=== PATIENT | female | born 1995 | race African-American/Black ===

== ENCOUNTER 2016-11-06 22:32 | Emergency (ER) | payer MEDICAID ==
[~2016-11-06] VITALS: Ht 160 cm; Wt 69.9 kg
[2016-11-06 22:38] VITALS: BP 118/70
[2016-11-06 23:04] LABS: Urine Blood TRACE /uL (Negative); Urine Color Yellow (Yellow); Urine Glucose Normal (Normal); Urine Ketone Negative (Negative); Urine Mucus MANY (None Seen); Urine Nitrite Negative (Negative); Urine RBC 24 /hpf (0 - 4); Urine Squamous Epithelial Cell MOD /hpf (<5); Urine pH 7.5 (5.0-8.0)
[2016-11-06 23:13] LABS: Urine Bilirubin Negative (Negative)
[2016-11-06 23:25] LABS: Basophils # (auto) 0.1 uL; Basophils % (auto) 0.8 % (0.0-2.0); CONDITION Y; Eosinophils # (auto) 0.1 uL; Hematocrit 38.2 % (36.0-46.0); Hemoglobin 12.6 g/dL (12.2-16.2); Lymphocytes # (auto) 2.1 uL; Lymphocytes % (auto) 29.4 % (10.0-50.0); Mean Corpuscular Hemoglobin 28.9 pg (28.0-32.0); Mean Corpuscular Hgb Conc. 32.9 g/dL (32.0-36.0); Mean Corpuscular Volume 87.8 fL (80.0-100.0); Mean Platelet Volume 10.1 fL (7.4-10.4); Monocytes # (auto) 0.5 uL; Monocytes % (auto) 7.7 % (0.0-12.0); Neutrophils # (auto) 4.2 uL; Neutrophils % (auto) 60.1 % (37.0-80.0); Platelet Count (auto) 217 10^3/uL (140-450); Red Cell Distribution Width 13.2 % (11.6-16.0)
[2016-11-06 23:27] LABS: Albumin 3.6 g/dL (3.4-5.0); BUN/Creatinine Ratio 10.3; Calcium 8.3 mg/dL (8.5-10.1); Potassium 3.4 mmol/L (3.5-5.1)
[2016-11-06 23:29] LABS: Bilirubin, Total 0.4 mg/dL (0.2-1.0); Total Protein 7.3 g/dL (6.4-8.2)
== END 2016-11-07 01:15 | disposition left against medical advice (07) ==
LOC: ER 22:32
DX: O26.891 Other specified pregnancy related conditions, first trimester (principal); R10.30 Lower abdominal pain, unspecified; Z3A.01 Less than 8 weeks gestation of pregnancy; Z53.21 Procedure and treatment not carried out due to patient leaving prior to being seen by health care provider
CPT/HCPCS: 36415; 80053; 81001; 84702; 85025

== ENCOUNTER 2018-07-28 09:11 | Emergency (ER) | payer MEDICAID ==
[~2018-07-28] VITALS: Ht 160 cm; Wt 81.2 kg
[2018-07-28 09:44] VITALS: BP 126/60
== END 2018-07-28 10:32 | disposition home or self-care (01) ==
LOC: ER 09:11
DX: Z32.01 Encounter for pregnancy test, result positive (principal); R10.30 Lower abdominal pain, unspecified
CPT/HCPCS: 36415; 81002; 84702

== ENCOUNTER 2019-01-25 15:03 | Observation (INO) | payer MEDICAID ==
[~2019-01-25] VITALS: Ht 160 cm; Wt 71.2 kg
[2019-01-25 15:05] VITALS: BP 111/55
== END 2019-01-25 17:40 | disposition home or self-care (01) | DRG 566 ==
LOC: ER 15:03 → LDRP 15:10
PROVIDERS: ADMIT Specialist; ATTEND Specialist
DX: O46.93 Antepartum hemorrhage, unspecified, third trimester (principal); N93.9 Abnormal uterine and vaginal bleeding, unspecified; Z3A.30 30 weeks gestation of pregnancy
CPT/HCPCS: 59025; 76815; 81002; 84112; 99284; G0378

== ENCOUNTER 2019-03-19 19:43 | Observation (INO) | payer MEDICAID | END 2019-03-19 20:41 | disposition home or self-care (01) | DRG 566 | LOC: LDRP 19:43 | PROVIDERS: ADMIT Specialist; ATTEND Specialist | DX: O26.893 Other specified pregnancy related conditions, third trimester (principal); R42 Dizziness and giddiness; O26.93 Pregnancy related conditions, unspecified, third trimester; Z3A.38 38 weeks gestation of pregnancy | CPT/HCPCS: 59025; 81002; G0378 ==

== ENCOUNTER 2019-03-25 18:38 | Observation (INO) | payer MEDICAID ==
[~2019-03-25] VITALS: Ht 160 cm; Wt 85.7 kg
[~2019-03-25 18:38] MED LIST: PREN-96 PO
== END 2019-03-25 22:49 | disposition home or self-care (01) | DRG 566 ==
LOC: LDRP 18:38
PROVIDERS: ADMIT Specialist; ATTEND Specialist
DX: O62.9 Abnormality of forces of labor, unspecified (principal); Z3A.38 38 weeks gestation of pregnancy
CPT/HCPCS: 59025; 76818; 81002; G0378

== ENCOUNTER 2019-03-28 21:11 | Observation (INO) | payer MEDICAID | END 2019-03-28 22:20 | disposition home or self-care (01) | DRG 566 | LOC: LDRP 21:11 | PROVIDERS: ADMIT Specialist; ATTEND Specialist | DX: O62.9 Abnormality of forces of labor, unspecified (principal); O99.89 Other specified diseases and conditions complicating pregnancy, childbirth and the puerperium; Z3A.39 39 weeks gestation of pregnancy | CPT/HCPCS: 59025; 81002; G0378 ==

== ENCOUNTER 2019-03-30 10:30 | Observation (INO) | payer MEDICAID ==
[2019-03-30 14:26] LABS: Basophils # (auto) 0 uL; Eosinophils # (auto) 0 uL; Eosinophils % (auto) 0.3 % (0.0-7.0); Monocytes # (auto) 0.4 uL; Nucleated Red Blood Cells % 0.1 %; Red Blood Cells 3.62 10^6/uL (4.0-5.20)
[2019-03-30 14:27] LABS: Basophils % (auto) 0.4 % (0.0-2.0); Hematocrit 27.9 % (36.0-46.0); Lymphocytes # (auto) 1.3 uL; Lymphocytes % (auto) 16.5 % (10.0-50.0); Mean Corpuscular Hgb Conc. 32.4 g/dL (32.0-36.0); Mean Corpuscular Volume 77.2 fL (80.0-100.0); Monocytes % (auto) 4.8 % (0.0-12.0); Neutrophils # (auto) 6.2 uL; Platelet Count (auto) 233 10^3/uL (140-450); Red Cell Distribution Width 16.4 % (11.8-14.3)
[2019-03-30 15:25] LABS: Urine Bacteria FEW /hpf (None Seen); Urine Blood Negative /uL (Negative); Urine Hyaline Cast FEW /lpf (0 - 2); Urine Mucus FEW (None Seen); Urine Specific Gravity 1.025 (1.001-1.035); Urine WBC 7 /hpf (0 - 5)
[2019-03-30 15:27] LABS: Amphetamine Screen, Urine NEGATIVE (NEGATIVE); Barbiturate Scree,Urine NEGATIVE (NEGATIVE); Benzodiazephine Screen, Urine NEGATIVE (NEGATIVE); Cannabinoid Screen, Urine NEGATIVE (NEGATIVE); Cocaine Screen, Urine NEGATIVE (NEGATIVE); Opiate Scree,Urine NEGATIVE (NEGATIVE); Phencyclidine Screen, Urine NEGATIVE (NEGATIVE)
[2019-03-31 05:06] LABS: RPR Non Reactive (Non Reactive)
== END 2019-03-30 14:45 | disposition home or self-care (01) | DRG 566 ==
LOC: LDRP 10:30
PROVIDERS: ADMIT Specialist; ATTEND Specialist
DX: O48.0 Post-term pregnancy (principal); Z3A.40 40 weeks gestation of pregnancy
CPT/HCPCS: 36415; 59025; 76818; 80307; 81001; 81002; 84112; 85025; 86592; 87086; 87491; 87591; G0378

== ENCOUNTER 2019-04-01 14:38 | Observation (INO) | payer MEDICAID | END 2019-04-01 15:40 | disposition home or self-care (01) | DRG 566 | LOC: LDRP 14:38 | PROVIDERS: ADMIT Obstetrics & Gynecology; ATTEND Obstetrics & Gynecology | DX: O48.0 Post-term pregnancy (principal); Z3A.40 40 weeks gestation of pregnancy | CPT/HCPCS: 59025; 76818; 81002; G0378 ==

== ENCOUNTER 2019-04-03 11:05 | Observation (INO) | payer MEDICAID | END 2019-04-03 13:05 | disposition home or self-care (01) | DRG 566 | LOC: LDRP 11:05 | PROVIDERS: ADMIT Obstetrics & Gynecology; ATTEND Obstetrics & Gynecology | DX: O48.0 Post-term pregnancy (principal); Z3A.40 40 weeks gestation of pregnancy | CPT/HCPCS: 59025; 76818; 81002; G0378 ==

== ENCOUNTER → 2021-05-13 | Outpatient (CLI) | payer MEDICAID ==
[2021-05-13 11:33] LABS: Basophils # (auto) 0 10 ^3/uL (0-0.2); Basophils % (auto) 0.4 % (0.0-2.0); Eosinophils # (auto) 0.1 10 ^3/uL (0-0.8); Hematocrit 31.7 % (36.0-46.0); Hemoglobin 11.1 g/dL (12.2-16.2); Lymphocytes # (auto) 0.9 10 ^3/uL (0.4-5.4); Lymphocytes % (auto) 13.1 % (10.0-50.0); Mean Corpuscular Hemoglobin 30.2 pg (28.0-32.0); Mean Corpuscular Volume 86.4 fL (80.0-100.0); Monocytes # (auto) 0.3 10 ^3/uL (0-1.3); Monocytes % (auto) 4.6 % (0.0-12.0); Neutrophils # (auto) 5.5 10 ^3/uL (1.6-8.6); Neutrophils % (auto) 79.9 % (37.0-80.0); Red Blood Cells 3.67 10^6/uL (4.0-5.20); Red Cell Distribution Width 14.2 % (11.8-14.3); White Blood Cell 6.9 10^3/uL (4.4-10.8)
[2021-05-13 11:45] LABS: Alcohol, Urine < 3.0 mg/dL (0-10); Amphetamine Screen, Urine NEGATIVE (NEGATIVE); Barbiturate Scree,Urine NEGATIVE (NEGATIVE); Benzodiazephine Screen, Urine NEGATIVE (NEGATIVE); Cannabinoid Screen, Urine NEGATIVE (NEGATIVE); Cocaine Screen, Urine NEGATIVE (NEGATIVE); Opiate Scree,Urine NEGATIVE (NEGATIVE); Phencyclidine Screen, Urine NEGATIVE (NEGATIVE)
[2021-05-14 05:07] LABS: RPR Non Reactive (Non Reactive)
== END | disposition home or self-care (01) ==
LOC: LAB 10:31
PROVIDERS: ATTEND Obstetrics & Gynecology Obstetrics
DX: Z34.80 Encounter for supervision of other normal pregnancy, unspecified trimester (principal); N39.0 Urinary tract infection, site not specified; Z31.430 Encounter of female for testing for genetic disease carrier status for procreative management; Z36.0 Encounter for antenatal screening for chromosomal anomalies
CPT/HCPCS: 36415; 80307; 83036; 84112; 84702; 85025; 86592; 86703; 86762; 86850; 86900; 86901; 87086; 87340

== ENCOUNTER → 2021-08-15 | Outpatient (CLI) | payer MEDICAID ==
[2021-08-15 09:29] LABS: Basophils # (auto) 0 10 ^3/uL (0-0.2); Basophils % (auto) 0.4 % (0.0-2.0); Eosinophils # (auto) 0.1 10 ^3/uL (0-0.8); Eosinophils % (auto) 1.2 % (0.0-7.0); Hematocrit 32.9 % (36.0-46.0); Hemoglobin 11.3 g/dL (12.2-16.2); Lymphocytes # (auto) 1.6 10 ^3/uL (0.4-5.4); Lymphocytes % (auto) 23.1 % (10.0-50.0); Mean Corpuscular Hemoglobin 29.3 pg (28.0-32.0); Mean Corpuscular Hgb Conc. 34.2 g/dL (32.0-36.0); Mean Corpuscular Volume 85.6 fL (80.0-100.0); Monocytes # (auto) 0.4 10 ^3/uL (0-1.3); Monocytes % (auto) 6.3 % (0.0-12.0); Neutrophils # (auto) 4.8 10 ^3/uL (1.6-8.6); Nucleated Red Blood Cells % 0.2 %; Red Blood Cells 3.85 10^6/uL (4.0-5.20); Red Cell Distribution Width 13.7 % (11.8-14.3)
== END | disposition home or self-care (01) ==
LOC: LAB 09:04
PROVIDERS: ATTEND Obstetrics & Gynecology Obstetrics
DX: Z34.80 Encounter for supervision of other normal pregnancy, unspecified trimester (principal); O99.810 Abnormal glucose complicating pregnancy
CPT/HCPCS: 36415; 82951; 85025

== ENCOUNTER 2021-10-02 08:04 | Inpatient (IN) | payer MEDICAID ==
[~2021-10-02] VITALS: Ht 160 cm; Wt 86.6 kg
[2021-10-02] MEDS ORDERED: ASPI-498 OR (08:39)
[2021-10-02] MEDS ORDERED: LIDOCAINE 2%HCL (LOCAL ANESTH.) INJ 10ml MDV IJ PRN (12:15)
[2021-10-02] MEDS ORDERED: PROMETHAZINE HCL 25 MG/ML 1ML IV PRN (12:15)
[2021-10-02] MEDS ORDERED: LACTATED RINGER'S 1,000 ML IV SCH (12:15)
[2021-10-02] MEDS ORDERED: BUTORPHANOL TARTRATE 2 MG/1 ML VIAL IV PRN ×2 (12:15)
[2021-10-02 12:38] LABS: Basophils # (auto) 0 10 ^3/uL (0-0.2); Basophils % (auto) 0.4 % (0.0-2.0); Eosinophils # (auto) 0 10 ^3/uL (0-0.8); Eosinophils % (auto) 0.2 % (0.0-7.0); Hematocrit 34.6 % (36.0-46.0); Hemoglobin 11.2 g/dL (12.2-16.2); Lymphocytes # (auto) 1.1 10 ^3/uL (0.4-5.4); Lymphocytes % (auto) 11.5 % (10.0-50.0); Mean Corpuscular Hemoglobin 27.1 pg (28.0-32.0); Mean Corpuscular Hgb Conc. 32.5 g/dL (32.0-36.0); Mean Corpuscular Volume 83.2 fL (80.0-100.0); Monocytes # (auto) 0.5 10 ^3/uL (0-1.3); Monocytes % (auto) 5.2 % (0.0-12.0); Neutrophils # (auto) 8.2 10 ^3/uL (1.6-8.6); Neutrophils % (auto) 82.7 % (37.0-80.0); Red Blood Cells 4.16 10^6/uL (4.0-5.20); Red Cell Distribution Width 14.1 % (11.8-14.3); White Blood Cell 9.9 10^3/uL (4.4-10.8)
[2021-10-02 12:55] LABS: INR 0.95 (0.9-1.15); Partial Thromboplastin Time 27.7 sec (24.6-33.4)
[2021-10-02 12:56] LABS: Albumin 2.7 g/dL (3.4-5.0); BUN/Creatinine Ratio 8.3; Calcium 8.3 mg/dL (8.5-10.1); Potassium 3.8 mmol/L (3.5-5.1)
[2021-10-02 12:59] LABS: Bilirubin, Total 0.4 mg/dL (0.2-1.0); Total Protein 6.6 g/dL (6.4-8.2)
[2021-10-02] MEDS ORDERED: PENICILLIN G POT 5MIL/D5 50ML 50 ML IV ONE (13:15)
[2021-10-02] MEDS ORDERED: NS/OXYTOCIN 20UNITS 500 ML IV ONE ×2 (13:15→13:45)
[2021-10-02 13:30] LABS: Alcohol, Urine < 3.0 mg/dL (0-10); Amphetamine Screen, Urine NEGATIVE (NEGATIVE); Barbiturate Scree,Urine NEGATIVE (NEGATIVE); Benzodiazephine Screen, Urine NEGATIVE (NEGATIVE); Cannabinoid Screen, Urine NEGATIVE (NEGATIVE); Cocaine Screen, Urine NEGATIVE (NEGATIVE); Opiate Scree,Urine NEGATIVE (NEGATIVE); Phencyclidine Screen, Urine NEGATIVE (NEGATIVE)
[2021-10-02] MEDS ORDERED: LACTATED RINGER'S 1,000 ML IV ONE (14:15)
[2021-10-02] MEDS ORDERED: ROPIVACAINE HCL 200 ML EPI SCH (14:15)
[2021-10-02] MEDS ORDERED: NALOXONE HCL 0.4 MG/ML VIAL IV ONE (14:15)
[2021-10-02] MEDS ORDERED: LIDOCAINE HCL 2 %PF INJ 10ML AMP IJ ONE (14:15)
[2021-10-02] MEDS ORDERED: ePHEDrine SULFATE 50 MG/ML AMP IV ONE (14:15)
[2021-10-02] MEDS ORDERED: fentaNYL CITRATE 100 MCG/2 ML VL IV ONE (14:15)
[2021-10-02 14:40] LABS: Urine Bacteria FEW /hpf (None Seen); Urine Blood 3+ /uL (Negative); Urine Mucus FEW (None Seen); Urine WBC 28 /hpf (0 - 5)
[2021-10-02] MEDS ORDERED: NS/OXYTOCIN 20UNITS 1,000 ML IV SCH (15:30)
[2021-10-02] MEDS ORDERED: PENICILLIN G POTASSIUM 2,500,000 UNITS in D5W 5% 50 ML IV SCH (17:15)
[2021-10-02] MEDS ORDERED: IBUPROFEN 600 MG TAB PO PRN (18:45)
[2021-10-02] MEDS ORDERED: ACETAMINOPHEN 325 MG TAB PO PRN (18:45)
[2021-10-02] MEDS ORDERED: ONDANSETRON ODT 4 MG TAB PO PRN (18:45)
[2021-10-02 22:30] VITALS: BP 98/56
[2021-10-03] MEDS: WITCH HAZEL-GLYCERIN PAD TOP PRN ×2 (00:53→20:46)
[2021-10-03] MEDS: PHISODERM TOP SOLN 240ML BTL TOP PRN ×2 (00:53→20:46)
[2021-10-03] MEDS: DERMOPLAST 60ML BOTTLE TOP PRN ×2 (00:53→20:46)
[2021-10-03 03:00] VITALS: BP 102/63
[2021-10-03 07:00] VITALS: BP 117/67
[2021-10-03 07:07] LABS: RPR Non Reactive (Non Reactive)
[2021-10-03 11:02] VITALS: BP 104/57
[2021-10-03 15:00] VITALS: BP 101/59
[2021-10-03 18:48] VITALS: BP 108/67
== END 2021-10-03 22:17 | disposition home or self-care (01) | DRG 560 ==
LOC: UNDOADMOB 08:04 → LDRP 08:04 → INTOOBSV 11:56 → OBSVTOIN 11:56 → LDRP 11:57
PROVIDERS: ADMIT Obstetrics & Gynecology; ATTEND Obstetrics & Gynecology
PROC: 10E0XZZ Delivery of Products of Conception, External Approach (ICD-10-PCS; principal; 2021-10-02)
PROC: 3E0R3BZ Introduction of Anesthetic Agent into Spinal Canal, Percutaneous Approach (ICD-10-PCS; 2021-10-02)
PROC: 00HU33Z Insertion of Infusion Device into Spinal Canal, Percutaneous Approach (ICD-10-PCS; 2021-10-02)
DX: O69.81X0 Labor and delivery complicated by cord around neck, without compression, not applicable or unspecified (principal); Z37.0 Single live birth; Z20.822 Contact with and (suspected) exposure to COVID-19; Z3A.37 37 weeks gestation of pregnancy
CPT/HCPCS: 36415; 59025; 62282; 76815; 80053; 80307; 81001; 81002; 84112; 85025; 85610; 85730; 86592; 86850; 86900; 86901; 94760; 96360; 96361; 96365; 96366; G0378; J2540; J7060

== ENCOUNTER 2025-02-23 09:09 | Emergency (ER) | payer MEDICAID ==
[~2025-02-23] VITALS: Ht 160 cm; Wt 70.4 kg
[~2025-02-23 09:09] MED LIST changes: +ASPI-498 OR
[2025-02-23 10:15] VITALS: BP 139/80; PULSE 76; RESP 18; TEMP 98.6; O2SAT 98
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
[2025-02-23] MEDS ORDERED: IBUP-1454 PO (11:28)
[2025-02-23] MEDS ORDERED: METH-1182 PO (11:28)
== END 2025-02-23 11:48 | disposition home or self-care (01) ==
LOC: ER 09:09 → EDBD 09:09 → ER 11:48
DX: S16.1XXA Strain of muscle, fascia and tendon at neck level, initial encounter (principal); V89.2XXA Person injured in unspecified motor-vehicle accident, traffic, initial encounter; Y93.89 Activity, other specified; Y92.89 Other specified places as the place of occurrence of the external cause; Y99.8 Other external cause status
CPT/HCPCS: 72040